=== PATIENT | male | born 1985 | race Caucasian/White ===

== ENCOUNTER 2018-11-03 12:25 | Inpatient (IN) | payer OTHER ==
[2018-11-03 16:05] VITALS: BMI 32.9
--- NOTE | 2018-11-03 16:58 | HP ---
"CIWA Score - Admission Criteria [facility] Guidelines: Admission for Medically Managed Detox: Requires at least one of the followin. CIWA greater than 12 2. Seizures within the past 24 hours 3. Delirium tremens within the past 24 hours 4. Hallucinations within the past 24 hours 5. Acute intervention needed for co occurring medical disorder 6. Acute intervention needed for co occurring psychiatric disorder 7. Severe withdrawal that cannot be handled at a lower level of care (continued vomiting, continued diarrhea, abnormal vital signs) requiring intravenous medication and/or fluids 8. Admission ROS S - HPI Chief Complaint: Here for rehab drinks alcohol and uses ill Allergies/Adverse Reactions: Allergies Allergy/AdvReac Type Severity Reaction Status Date / Time No Known Allergies Allergy Verified 11/03/18 17:32 History of Present Illness: States here for rehab. Relapsed with alcohol and drug use 3 days (10/31) ago but had been sober for since 10/23. States unsure when last took Suboxone - may have been 3 days ago. Last used percocet 3 days ago(10/31) . States last used Xanax last night to get to sleep. States rarely takes Xanax. Will restart Suboxone in am. Opiate use began at age 24. Nicotine use at age 21. States started Suboxone 2 months ago. Will restart Suboxone in am. Has tried MMTP in the past. Alcohol use began at age 7. Last drank 3 days ago(10/31), and on gi ( 10/23) prior to that. Longest length of sobriety 5 months. States was sober until relapsed on 10/23. Hx Chlamydia 2008 and was treated. Denies significant PMH/PSH Search Terms: Darnell Doll, 1985 Search Date: 11/03/2018 04:43:17 PM The Drug Utilization Report below displays all of the controlled substance prescriptions, if any, that your patient has filled in the last twelve months. The information displayed on this report is compiled from pharmacy submissions to the Department, and accurately reflects the information as submitted by the pharmacies. This report was requested by: Gaye Bolivar | Reference #: [id number] Others' Prescriptions Patient Name: Darnell Doll Date: 1985 Address: [address] [place] [address] Sex: Male Rx Written Rx Dispensed Drug Quantity Days Supply Prescriber Name 10/28/2018 10/28/2018 suboxone 12 mg-3 mg sl film 30 30 [facility] 10/14/2018 10/18/2018 suboxone 8 mg-2 mg sl film 15 15 Juan Figueroa MD 09/12/2018 09/19/2018 suboxone 12 mg-3 mg sl film 30 30 [facility] 08/19/2018 08/19/2018 suboxone 12 mg-3 mg sl film 30 30 [facility] 08/05/2018 08/05/2018 suboxone 12 mg-3 mg sl film 15 15 [facility] 07/11/2018 07/14/2018 suboxone 8 mg-2 mg sl film 15 15 [facility] 07/02/2018 07/03/2018 suboxone 4 mg-1 mg sl film 15 15 [facility] Exam Limitations: No Limitations - Ebola screening Have you traveled outside of the country in the last 21 days: No Have you had contact with anyone from an Ebola affected area: No Have you been sick,other than usual withdrawal symptoms: No Do you have a fever: No - Review of Systems Constitutional: Changes in sleep (Difficulty falling asleep) EENT: reports: No Symptoms Reported Respiratory: reports: No Symptoms reported Cardiac: reports: No Symptoms Reported GI: reports: No Symptoms Reported : reports: No Symptoms Reported, Other Musculoskeletal: reports: Joint Pain (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 No pain at this time. Usually occurs when working.) Integumentary: reports: No Symptoms Reported Neuro: reports: No Symptoms reported Endocrine: reports: No Symptoms Reported Hematology: reports: No Symptoms Reported Psychiatric: reports: Judgement Intact, Mood/Affect Appropiate, Orientated x3, Anxious (Denies thoughts of harming self or others) Patient History - Smoking Cessation Smoking history: Current every day smoker Have you smoked in the past 12 months: Yes Aproximately how many cigarettes per day: 10 Hx Chewing Tobacco Use: No Initiated information on smoking cessation: Yes 'Breaking Loose' booklet given: 11/03/18 - Substance & Tx. History Hx Alcohol Use: Yes Hx Substance Use: Yes Substance Use Type: Alcohol, Heroin, Opiates Hx Substance Use Treatment: Yes (detox, rehab, outpaitient) - Substances Abused Alcohol Age of first use: 7 Date of Last Use: 10/31/18 Admission Physical Exam [facility] - Vital Signs Vital Signs: Vital Signs - 24 hr 11/03/18 16:03 Temperature 98.3 F Pulse Rate 81 Respiratory 20 Rate Blood Pressure 145/82 - Physical General Appearance: Yes: No Apparent Distress, Anxious HEENTM: Yes: EOMI, Hearing grossly Normal, Normocephalic, GERMAN (Pupils = 4 mm), Pharynx Normal Respiratory: Yes: Chest Non-Tender, Lungs Clear, Normal Breath Sounds, No Respiratory Distress Neck: Yes: No masses,lesions,Nodules, Supple Breast: Yes: Breast Exam Deferred Cardiology: Yes: Regular Rhythm, Regular Rate, S1, S2 Abdominal: Yes: Normal Bowel Sounds, Non Tender, Soft Genitourinary: Yes: Within Normal Limits Back: Yes: Normal Inspection Musculoskeletal: Yes: full range of Motion, Gait Steady Extremities: Yes: Normal Capillary Refill, Normal Range of Motion, Non-Tender, Tremors (Mild tremors of hands upon extension.) 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, Fully Oriented, Alert, Motor Strength 5/5, Normal Mood/Affect, Normal Response Integumentary: Yes: Normal Color, Dry, Warm Lymphatic: Yes: Within Normal Limits - Diagnostic (1) Alcohol use disorder, moderate, in early remission Current Visit: Yes Status: Acute (2) Opioid dependence on agonist therapy Current Visit: Yes Status: Chronic (3) Nicotine dependence Current Visit: Yes Status: Acute Qualifiers: Nicotine product type: cigarettes Substance use status: uncomplicated Qualified Code(s): F17.210 - Nicotine dependence, cigarettes, uncomplicated Cleared for Admission [facility] - Detox or Rehab Claeared for Rehab Admission: Yes [facility] Breath Alcohol Content Breath Alcohol Content: 0 Urine Drug Screen - Results Drug Screen Negative: No Urine Drug Screen Results: OPI-Opiates, BZO-Benzodiazepines, FEN-Fentanyl Inpatient Rehab Admission - Initial Determination Are CD services needed?: Yes Free of communicable disease: Yes Not in need of hospitalization: Yes - Rehab Admission Criteria Previous failed treatment: Yes Poor recovery environment: Yes Comorbidities: No Lacks judgement: No Patient is meeting Inpatient Rehab admission criteria:: Yes"
[2018-11-03] MEDS ORDERED: MAGNESIUM HYDROX 2400MG/30ML ORAL SUSPENSION 30 ML CUP PO PRN (17:17)
[2018-11-03] MEDS ORDERED: MENTHOL/PHENOL 1 EACH UD MM PRN (17:17)
[2018-11-03] MEDS ORDERED: MAG HYDROX/AL HYDROX/SIMETH 30 ML UNIT-DOSE CUP PO PRN (17:17)
[2018-11-03] MEDS ORDERED: MAGNESIUM CITRATE 300 ML BOTTLE PO PRN (17:17)
[2018-11-03] MEDS ORDERED: IBUPROFEN 400 MG TABLET (FP) PO PRN (17:17)
[2018-11-03] MEDS ORDERED: LOPERAMIDE HCL 2 MG CAPSULE PO PRN (17:17)
[2018-11-03] MEDS ORDERED: ACETAMINOPHEN 325 MG TABLET (FP) PO PRN (17:17)
[2018-11-03] MEDS ORDERED: TUBERCULIN PPD 5 TU/0.1ML VIAL ID ONE ×2 (20:50→23:30)
[2018-11-03] MEDS: THIAMINE HCL 100 MG TABLET (FP) PO SCH (22:04)
[2018-11-04] MEDS ORDERED: BUPRENORPHINE HCL/NALOXONE 12 MG-3 MG SL FILM PACKET SL SCH (10:00)
[2018-11-04] MEDS: PRENATAL VITAMINS W/ FOLIC ACID TABLET (FP) PO SCH (10:23)
[2018-11-04] MEDS: NICOTINE 21 MG/24 HOURS TOPICAL PATCH TD SCH (10:23)
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
--- NOTE | 2018-11-04 10:39 | PN ---
[facility] Progress Note Note: PT IS A NEW PATIENT ADMITTED YESTERDAY BUT REPORTS HE USED PERCOCETS 60 MG YESTERDAY AND WANTS TO WAIT OUT THE TIME NEEDED TO CLEAR IT FROM HIS SYSTEM BEFORE TAKING THE SUBOXONE. PT IS ON SUBOXONE 12 MG SL DAILY BUT STATES HE TAKES IT AT LATER IN THE EVENINGS DUE TO HIS WORK SCHEDULE AND WANTS TO CONTINUE SAME ROUTINE. PT IS NOT SUBOXONE NAIVE AND APPEARS HE IS AWARE OF THE CONSEQUENCES OF TAKING SUBOXONE WITH OPIOIDS SAME TIME. PT IS ALERT O X 3. NAD. Vital Signs 11/04/18 11/04/18 03:23 06:39 Temperature 98.3 F Pulse Rate 63 Respiratory 18 18 Rate Blood Pressure 123/72 A:NAD SUBOXONE MAINTENANCE PLAN; START SUBOXONE DIRECTED
[2018-11-04 14:07] LABS: HEMATOCRIT 47.8 % (35.4-49); HEMOGLOBIN 15.8 GM/dL (11.7-16.9); MCH 31.2 pg (25.7-33.7); MCHC 32.9 g/dl (32.0-35.9); MEAN CELL VOLUME 94.7 fl (80-96); MEAN PLT VOLUME 8.4 fl (7.5-11.1); PLATELET COUNT 255 K/MM3 (134-434); RBC 5.05 M/mm3 (4.00-5.60); RDW 13.4 % (11.9-15.9)
[2018-11-04 14:22] LABS: ALBUMIN 3.6 g/dl (3.4-5.0); ALK PHOS 79 U/L (45-117); ANION GAP 7 MMOL/L (8-16); BILIRUBIN,TOTAL 0.8 mg/dL (0.2-1); BLOOD UREA NITROGEN 11 mg/dL (7-18); CALCIUM 9.1 mg/dL (8.5-10.1); CHLORIDE 104 mmol/L (98-107); CO2 29 mmol/L (21-32); CREATININE 0.8 mg/dL (0.55-1.3); GLUCOSE,RANDOM 78 mg/dL (74-106); SGOT/AST 23 U/L (15-37); SGPT/ALT 35 U/L (13-61); SODIUM 139 mmol/L (136-145); TOT PROT 7.1 g/dl (6.4-8.2)
--- NOTE | 2018-11-04 17:04 | EKG ---
Test Reason : Blood Pressure : / mmHG Vent. Rate : 083 BPM Atrial Rate : 083 BPM P-R Int : 152 ms QRS Dur : 082 ms QT Int : 366 ms P-R-T Axes : 059 027 032 degrees QTc Int : 430 ms NORMAL SINUS RHYTHM NORMAL ECG NO PREVIOUS ECGS AVAILABLE Confirmed by MD FATIMAH, JONATAN ([id number]) on 11/04/2018 5:03:58 PM Referred By: Confirmed By:JONATAN SHERIDAN MD
[2018-11-04] MEDS: THIAMINE HCL 100 MG TABLET (FP) PO SCH (21:30)
[2018-11-04] MEDS: hydrOXYzine PAMOATE 50 MG CAPSULE (FP) PO PRN (21:32)
--- NOTE | 2018-11-05 10:04 | PN ---
S Progress Note Note: Pt states he refused suboxone yesterday b/c he was not in withdrawal. Is in withdrawal now-wants suboxone- prefers morning suboxone- ordered 12mg/day
[2018-11-05] MEDS: PRENATAL VITAMINS W/ FOLIC ACID TABLET (FP) PO SCH (10:27)
[2018-11-05] MEDS: NICOTINE 21 MG/24 HOURS TOPICAL PATCH TD SCH (10:27)
[2018-11-05] MEDS: BUPRENORPHINE HCL/NALOXONE 12 MG-3 MG SL FILM PACKET SL SCH (10:32)
[2018-11-05] MEDS ORDERED: BUPRENORPHINE/NALOXONE 8 MG/2 MG FILM PACKET SL ONE (18:00)
[2018-11-05] MEDS ORDERED: BUPRENORPHINE HCL/NALOXONE 12 MG-3 MG SL FILM PACKET SL SCH (18:00)
[2018-11-05] MEDS: THIAMINE HCL 100 MG TABLET (FP) PO SCH (21:16)
[2018-11-05] MEDS: SUVOREXANT 10 MG TABLET PO PRN (21:17)
[2018-11-06] MEDS: NICOTINE 21 MG/24 HOURS TOPICAL PATCH TD SCH (09:56)
[2018-11-06] MEDS: PRENATAL VITAMINS W/ FOLIC ACID TABLET (FP) PO SCH (09:56)
[2018-11-06] MEDS: BUPRENORPHINE HCL/NALOXONE 12 MG-3 MG SL FILM PACKET SL SCH (09:56)
[2018-11-06] MEDS: hydrOXYzine PAMOATE 50 MG CAPSULE (FP) PO PRN ×2 (09:59→21:14)
[2018-11-06] MEDS ORDERED: BUPRENORPHINE HCL/NALOXONE 12 MG-3 MG SL FILM PACKET SL SCH (18:00)
[2018-11-06] MEDS: THIAMINE HCL 100 MG TABLET (FP) PO SCH (21:13)
[2018-11-06] MEDS: SUVOREXANT 10 MG TABLET PO PRN (21:14)
[2018-11-07] MEDS: PRENATAL VITAMINS W/ FOLIC ACID TABLET (FP) PO SCH (10:07)
[2018-11-07] MEDS: NICOTINE 21 MG/24 HOURS TOPICAL PATCH TD SCH (10:07)
[2018-11-07] MEDS: BUPRENORPHINE HCL/NALOXONE 12 MG-3 MG SL FILM PACKET SL SCH (10:07)
[2018-11-07] MEDS: hydrOXYzine PAMOATE 50 MG CAPSULE (FP) PO PRN ×2 (10:08→21:24)
[2018-11-07] MEDS: THIAMINE HCL 100 MG TABLET (FP) PO SCH (21:24)
[2018-11-07] MEDS: SUVOREXANT 10 MG TABLET PO PRN (21:24)
[2018-11-08] MEDS: NICOTINE 21 MG/24 HOURS TOPICAL PATCH TD SCH (10:24)
[2018-11-08] MEDS: PRENATAL VITAMINS W/ FOLIC ACID TABLET (FP) PO SCH (10:25)
[2018-11-08] MEDS: BUPRENORPHINE HCL/NALOXONE 12 MG-3 MG SL FILM PACKET SL SCH (10:26)
[2018-11-08] MEDS: hydrOXYzine PAMOATE 50 MG CAPSULE (FP) PO PRN ×2 (10:26→21:29)
[2018-11-08] MEDS: MELATONIN 5 MG TABLETS PO PRN (21:29)
[2018-11-08] MEDS: NICOTINE POLACRILEX 2 MG GUM BC PRN (21:29)
[2018-11-08] MEDS: THIAMINE HCL 100 MG TABLET (FP) PO SCH (21:29)
[2018-11-09] MEDS: NICOTINE 21 MG/24 HOURS TOPICAL PATCH TD SCH (09:49)
[2018-11-09] MEDS: BUPRENORPHINE HCL/NALOXONE 12 MG-3 MG SL FILM PACKET SL SCH (09:50)
[2018-11-09] MEDS: PRENATAL VITAMINS W/ FOLIC ACID TABLET (FP) PO SCH (09:50)
[2018-11-09] MEDS: hydrOXYzine PAMOATE 50 MG CAPSULE (FP) PO PRN ×2 (09:50→18:28)
[2018-11-09] MEDS: THIAMINE HCL 100 MG TABLET (FP) PO SCH (21:35)
[2018-11-09] MEDS: NICOTINE POLACRILEX 2 MG GUM BC PRN (21:36)
[2018-11-09] MEDS: MELATONIN 5 MG TABLETS PO PRN (21:36)
[2018-11-10] MEDS: BUPRENORPHINE HCL/NALOXONE 12 MG-3 MG SL FILM PACKET SL SCH (09:52)
[2018-11-10] MEDS: PRENATAL VITAMINS W/ FOLIC ACID TABLET (FP) PO SCH (09:53)
[2018-11-10] MEDS: NICOTINE 21 MG/24 HOURS TOPICAL PATCH TD SCH (09:53)
[2018-11-10] MEDS: hydrOXYzine PAMOATE 50 MG CAPSULE (FP) PO PRN ×3 (09:54→21:24)
[2018-11-10] MEDS: THIAMINE HCL 100 MG TABLET (FP) PO SCH (21:21)
[2018-11-10] MEDS: MELATONIN 5 MG TABLETS PO PRN (21:24)
[2018-11-10] MEDS: NICOTINE POLACRILEX 2 MG GUM BC PRN (21:25)
[2018-11-11] MEDS: hydrOXYzine PAMOATE 50 MG CAPSULE (FP) PO PRN ×4 (06:54→21:22)
[2018-11-11] MEDS: BUPRENORPHINE HCL/NALOXONE 12 MG-3 MG SL FILM PACKET SL SCH (10:13)
[2018-11-11] MEDS: NICOTINE 21 MG/24 HOURS TOPICAL PATCH TD SCH (10:13)
[2018-11-11] MEDS: PRENATAL VITAMINS W/ FOLIC ACID TABLET (FP) PO SCH (10:13)
[2018-11-11] MEDS: THIAMINE HCL 100 MG TABLET (FP) PO SCH (21:22)
[2018-11-11] MEDS: MELATONIN 5 MG TABLETS PO PRN (21:22)
[2018-11-11] MEDS: NICOTINE POLACRILEX 2 MG GUM BC PRN (21:24)
[2018-11-12] MEDS: hydrOXYzine PAMOATE 50 MG CAPSULE (FP) PO PRN ×3 (07:46→21:20)
[2018-11-12] MEDS: PRENATAL VITAMINS W/ FOLIC ACID TABLET (FP) PO SCH (10:11)
[2018-11-12] MEDS: NICOTINE 21 MG/24 HOURS TOPICAL PATCH TD SCH (10:11)
[2018-11-12] MEDS: BUPRENORPHINE HCL/NALOXONE 12 MG-3 MG SL FILM PACKET SL SCH (10:12)
[2018-11-12] MEDS: NICOTINE POLACRILEX 2 MG GUM BC PRN ×2 (14:31→21:21)
[2018-11-12] MEDS: THIAMINE HCL 100 MG TABLET (FP) PO SCH (21:20)
[2018-11-12] MEDS: MELATONIN 5 MG TABLETS PO PRN (21:20)
[2018-11-13] MEDS: hydrOXYzine PAMOATE 50 MG CAPSULE (FP) PO PRN ×3 (06:35→21:31)
[2018-11-13 06:54] VITALS: TEMP 97.6
[2018-11-13] MEDS: PRENATAL VITAMINS W/ FOLIC ACID TABLET (FP) PO SCH (10:15)
[2018-11-13] MEDS: NICOTINE 21 MG/24 HOURS TOPICAL PATCH TD SCH (10:15)
[2018-11-13] MEDS: BUPRENORPHINE HCL/NALOXONE 12 MG-3 MG SL FILM PACKET SL SCH (11:43)
[2018-11-13] MEDS: THIAMINE HCL 100 MG TABLET (FP) PO SCH (21:31)
[2018-11-13] MEDS: MELATONIN 5 MG TABLETS PO PRN (21:31)
[2018-11-13] MEDS: NICOTINE POLACRILEX 2 MG GUM BC PRN (21:32)
[2018-11-14] MEDS: hydrOXYzine PAMOATE 50 MG CAPSULE (FP) PO PRN (06:33)
[2018-11-14 06:53] VITALS: BP 121/64; PULSE 54
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
[2018-11-14] MEDS: BUPRENORPHINE HCL/NALOXONE 12 MG-3 MG SL FILM PACKET SL SCH (09:59)
[2018-11-14] MEDS: PRENATAL VITAMINS W/ FOLIC ACID TABLET (FP) PO SCH (10:00)
[2018-11-14] MEDS: NICOTINE 21 MG/24 HOURS TOPICAL PATCH TD SCH (10:00)
== END 2018-11-14 10:05 | disposition home or self-care (01) | DRG 772 ==
LOC: YASAS 12:25 → Y5N 18:02
PROVIDERS: ADMIT Psychiatry & Neurology Psychiatry; ATTEND Psychiatry & Neurology Psychiatry
PROC: HZ42ZZZ Group Counseling for Substance Abuse Treatment, Cognitive-Behavioral (ICD-10-PCS; principal; 2018-11-03)
DX: F10.20 Alcohol dependence, uncomplicated (principal); F11.20 Opioid dependence, uncomplicated; F14.21 Cocaine dependence, in remission; F17.210 Nicotine dependence, cigarettes, uncomplicated; F19.280 Other psychoactive substance dependence with psychoactive substance-induced anxiety disorder; F19.282 Other psychoactive substance dependence with psychoactive substance-induced sleep disorder
CPT/HCPCS: 36415; 80053; 85027; 86593; 93005; 93010